=== PATIENT | male | born 1955 | race American Indian/Alaskan Native ===

== ENCOUNTER 2018-06-06 05:48 | Day surgery (SDC) | payer OTHER ==
[2018-06-06] MEDS ORDERED: LACTATED RINGERS 1,000 ML IV SCH (06:19)
[2018-06-06] MEDS ORDERED: NACL BACTERIOSTATIC INFILTRATI ONE (06:47)
[2018-06-06] MEDS ORDERED: ANCEF/STERILE WATER 2 GM/20 ML 2 GM/20 ML SYRINGE IV SCH (07:00)
[2018-06-06] MEDS ORDERED: DIPRIVAN 10 MG/ML IV ONE (07:15)
[2018-06-06] MEDS ORDERED: DILAUDID ONE (07:16)
[2018-06-06] MEDS ORDERED: MARCAINE-EPI 0.5%-1:200,000 INFILTRATI ONE ×2 (07:16→08:09)
[2018-06-06] MEDS ORDERED: XYLOCAINE MPF 2% ONE (07:16)
[2018-06-06] MEDS ORDERED: ZEMURON IV ONE (07:16)
[2018-06-06] MEDS ORDERED: PEPCID IV NR (07:20)
--- NOTE | 2018-06-06 07:23 | Anesthesia Day of Surgery ---
Anesthesia Day of Surgery - Day of Surgery Patient Examined: Yes Patient H&P Reviewed: Yes Patient is NPO: Yes
--- NOTE | 2018-06-06 07:23 | Anesthesia Consultation ---
Anesthesia Consult and Med Hx Date of service: 06/06/18 - Airway Anesthetic Teeth Evaluation: Poor (multiple missing, broken teeth) ROM Head & Neck: Adequate Mental/Hyoid Distance: Adequate Mallampati Class: Class II Intubation Access Assessment: Probably Good - Pre-Operative Health Status ASA Pre-Surgery Classification: ASA2 Proposed Anesthetic Plan: General - Cardiovascular System Hx Hypertension: Yes (2013) Hx Coronary Artery Disease: No (high cholesterol) - Central Nervous System Hx Psychiatric Problems: No - Other Systems Hx Alcohol Use: No Hx Substance Use: No Hx Cancer: No
[2018-06-06] MEDS ORDERED: ceFAZolin 2 GM in NACL 0.9% 100 ML IV ONE (07:30)
[2018-06-06] MEDS ORDERED: NEO SYNEPHRINE/NS Syringe(OR USE) IV ONE (07:58)
[2018-06-06] MEDS ORDERED: VERSED IV NR (08:00)
[2018-06-06] MEDS ORDERED: NACL 0.9% IR ONE (08:10)
[2018-06-06] MEDS ORDERED: ROBINUL ONE (08:45)
[2018-06-06] MEDS ORDERED: BLOXIVERZ ONE (08:45)
[2018-06-06] MEDS ORDERED: ZOFRAN ONE (08:46)
--- NOTE | 2018-06-06 08:47 | Discharge Summary ---
Short Stay Discharge Plan Activity: other (observe x 4 hrs then september d/c if stable and able to void. ice pack L groin x 6 hrs. scrotal support x 3 day. keep dressings dry x 5 days. no lifting over 5 lbs x 3 wks) Diet: clear liquids (resume reg diet in am) Wound: keep clean and dry Special Instructions: no heavy lifting Additional Instructions: aleve I po q 6-8hrs prn for breakthrough pain. surfak I po q am x 3 Follow up with: NICO SINGH MD [Staff Physician] - 7 Days
--- NOTE | 2018-06-06 09:22 | Operative Report ---
PREOPERATIVE DIAGNOSIS: Large left inguinal hernia. POSTOPERATIVE DIAGNOSIS: Large direct left inguinal hernia. PROCEDURE: Open left inguinal hernia repair with mesh. SURGEON: Layo Dobbs MD ANESTHESIA: General. ESTIMATED BLOOD LOSS: Minimal. DRAINS: No drains. COMPLICATIONS: None. DESCRIPTION OF PROCEDURE: The patient was taken to the operating room, prepped and draped in the usual sterile fashion. Incision was made using his landmarks, the anterior superior iliac spine and the pubic tubercle. Incision was carried down to the external oblique fascia. External oblique fascia was transected down to the external inguinal ring. The cord was then isolated and encircled with a [place] drain at the level of the pubic tubercle. Inspection of the cord revealed no indirect sac. A large direct hernia was noted. The direct sac was dissected free and returned to the peritoneal cavity. A keyhole Marlex mesh was then used to reconstruct the inguinal canal floor. The mesh was tacked inferiorly. Medially, the mesh was secured to the transversalis fascia and laterally to the iliopubic tract. The area was then irrigated copiously and dried. Checked for hemostasis and noted to be dry. Cord structures and ilioinguinal nerve were once again inspected and noted to be intact. The cord was then on laid over the mesh. External oblique fascia was then run over the cord with running 3-0 Vicryl suture. Subcutaneous tissues irrigated and skin closed with sola. A 0.5% Marcaine was infiltrated over the fascia as well as the subQ and skin for postoperative pain relief. Ilioinguinal nerve block was also performed. The patient tolerated the procedure well and left OR in stable condition. JOB# [id number] ZIGGY/ARIK
[2018-06-06] MEDS ORDERED: NORCO 5/325 PO PRN (10:48)
[2018-06-08 11:29] VITALS: BP 140/82
== END 2018-06-06 12:55 | disposition home or self-care (01) ==
LOC: OR 05:48
PROVIDERS: ATTEND Surgery
DX: K40.90 Unilateral inguinal hernia, without obstruction or gangrene, not specified as recurrent (principal); E78.00 Pure hypercholesterolemia, unspecified; I10 Essential (primary) hypertension; Z79.01 Long term (current) use of anticoagulants; Z98.49 Cataract extraction status, unspecified eye; Z80.42 Family history of malignant neoplasm of prostate
CPT/HCPCS: 49505; C1781; J0690; J1170; J2250; J2370; J2405; J2704; J2710; J7120